=== PATIENT | female | born 1950 | race Caucasian/White ===

== ENCOUNTER 2018-07-18 08:09 | Emergency (ER) | payer MEDICARE ==
[2018-07-18 08:16] VITALS: RESP 16; TEMP 97.6
[2018-07-18] MEDS ORDERED: KETOROLAC 60 MG/2 ML VIAL IM STA (08:39)
[2018-07-18] MEDS ORDERED: DIAZEPAM 5 MG TAB PO STA (08:40)
[2018-07-18] MEDS ORDERED: ONDANSETRON ODT 4 MG TAB PO STA (08:40)
--- NOTE | 2018-07-18 09:01 | ED ---
General Adult HPI - General Chief complaint: Neck Pain/Injury Stated complaint: Neck Pain Time Seen by Provider: 07/18/18 08:18 Source: patient, RN notes reviewed Mode of arrival: wheelchair Limitations: no limitations - History of Present Illness Initial comments: Patient 67-year-old female significant past medical history for osteoarthritis of her neck, presenting to the emergency room today with a chief complaint of increased neck pain over the last 4 days. Patient does admit that she went to chiropractor. States she's had to treatment. States after the second treatment the following day began having increased pain to the neck. She states worse with any movements of flexion, extension, rotation. Patient does admit that she's tried pain medication of ibuprofen, Ultram, [place]. She states she's taken to [place] for the pain over the last day. She states that her last [place] at 4 AM. She woke up this morning and had a couple coffee and vomited. States she has felt somewhat nauseous. She states she is still having increased pain to the neck that has been increasing last 4 days. Patient denies any radicular pain. She states if she holds her neck still the pain is better. Patient denies any other complaints or symptoms. Patient denies any recent fever, chills, shortness of breath, chest pain, back pain, abdominal pain , nausea or vomiting, numbness or tingling, dysuria or hematuria, constipation or diarrhea, visual changes, or any other complaints. - Related Data Previous Rx's Medication Instructions Recorded Cyclobenzaprine [Flexeril] 10 mg PO TID #20 tab 07/18/18 Hydrocodone/Acetaminophen [[place] 1 each PO Q6HR PRN #12 tab 07/18/18 5-325] Ondansetron Odt [Zofran ODT] 4 mg PO Q8HR PRN #20 tab 07/18/18 Allergies Allergy/AdvReac Type Severity Reaction Status Date / Time tree nut [Nut] Allergy Anaphylaxis Verified 07/18/18 08:16 Review of Systems ROS Statement: Those systems with pertinent positive or pertinent negative responses have been documented in the HPI. ROS Other: All systems not noted in ROS Statement are negative. Past Medical History Past Medical History: Asthma, Osteoarthritis (OA) History of Any Multi-Drug Resistant Organisms: None Reported Past Surgical History: Orthopedic Surgery Additional Past Surgical History / Comment(s): spinal fusion, shoulder surgery, wrist surgery Past Psychological History: No Psychological Hx Reported Smoking Status: Never smoker Past Alcohol Use History: Daily Past Drug Use History: None Reported General Exam - General Exam Comments Initial Comments: General: The patient is awake and alert, in no distress, and does not appear acutely ill. Eye: Pupils are equal, round and reactive to light. Extra-ocular movements are intact. No nystagmus. There is normal conjunctiva bilaterally. No signs of icterus. Ears, nose, mouth and throat: There are moist mucous membranes and no oral lesions. Neck: The neck is supple. Cardiovascular: There is a regular rate and rhythm. No murmur, rub or gallop is appreciated. Respiratory: Lungs are clear to auscultation, respirations are non-labored, breath sounds are equal. No wheezes, stridor, rales, or rhonchi. Gastrointestinal: Abdomen soft on palpation nontender. Musculoskeletal: Patient shows limited range of motion of the cervical spine due to pain. Patient is tender midline but increased tenderness paravertebrally both the left and right sides. Pain is reproduced with flexion , extension, and rotation to the left and right. Patient does have relief by placing her neck with her hands bilaterally. Sensation intact. Strength 5/5. Radial Pulses equal bilaterally 2+. Neurological: A&O x 3. CN II-XII intact, There are no obvious motor or sensory deficits. Coordination appears grossly intact. Speech is normal. Skin: Skin is warm and dry and no rashes or lesions are noted. Psychiatric: Cooperative, appropriate mood & affect, normal judgment. Limitations: no limitations Course Vital Signs 07/18/18 07/18/18 08:12 10:04 Temperature 97.6 F Pulse Rate 91 64 Respiratory 16 16 Rate Blood Pressure 144/84 123/74 O2 Sat by Pulse 98 95 Oximetry Medical Decision Making - Medical Decision Making CT of the neck reviewed and shows degenerative changes. No acute abnormality. Results were discussed with the patient. Patient feeling better after medications of Toradol, Valium here in emergency room. She does show much improved range of motion of the neck. Patient will be continued to be treated with anti-inflammatories, [place] for pain, muscle relaxer, and Zofran to use if needed for any further nausea. A opiate start talking form was discussed and filled out Disposition Clinical Impression: Cervical strain Disposition: HOME SELF-CARE Condition: Good Instructions: Cervical Strain (ED) Additional Instructions: Please use medication as discussed. Please follow-up with family doctor in the next 2 days of symptoms have not improved. Please return to emergency room if the symptoms increase or worsen or for any other concerns. Prescriptions: Cyclobenzaprine [Flexeril] 10 mg PO TID #20 tab Hydrocodone/Acetaminophen [[place] 5-325] 1 each PO Q6HR PRN #12 tab PRN Reason: Pain Ondansetron Odt [Zofran ODT] 4 mg PO Q8HR PRN #20 tab PRN Reason: Nausea Is patient prescribed a controlled substance at d/c from ED?: Yes If prescribed controlled substance>3 days was MAPS reviewed?: Prescribed <3 Days Referrals: Radhames Hwang MD [Primary Care Provider] - 1-2 days Time of Disposition: 10:16
--- NOTE | 2018-07-18 09:58 | CT ---
EXAMINATION TYPE: CT cervical spine wo con DATE OF EXAM: 07/18/2018 COMPARISON: None. HISTORY: Pt hx osteoarthritis in neck. Had new chiropractic treatment several days ago, resulting in pain, spasming. CT DLP: 284.2 mGycm Automated exposure control for dose reduction was used. TECHNIQUE: CT scan of the cervical spine is obtained without contrast, axial images are obtained, sa gittal and coronal reformatted images are also reviewed. FINDINGS: Visualized portions of the lungs are clear. Prevertebral soft tissues are normal. There is a reversal of the normal cervical lordosis. There is a mild antegrade listhesis of C4 on C5. Alignment is otherwise unremarkable. Atlantoaxial relationships are normal. There is disc space loss and hypertrophic spondylosis at C5-6, C5-6-7 and C7-T1 and to a lesser exten t C4-5. There is mild uncovertebral joint disease at these levels. There is facet arthropathy bilater ally at C2-3, worse on the right than the left and C3-4, worse on the left than the right as well as C4-5, worse on the left than the right. No definite protrusion is seen. No fracture or other acute osseous lesion is seen. IMPRESSION: 1. NO ACUTE OSSEOUS LESION. 2. MODERATELY SEVERE DEGENERATIVE CHANGE.
[2018-07-18 10:05] VITALS: BP 123/74; PULSE 64
== END 2018-07-18 10:21 | disposition home or self-care (01) ==
LOC: EC 08:09
DX: S16.1XXA Strain of muscle, fascia and tendon at neck level, initial encounter (principal); M47.812 Spondylosis without myelopathy or radiculopathy, cervical region; Z91.018 Allergy to other foods; Z98.1 Arthrodesis status; X50.9XXA Other and unspecified overexertion or strenuous movements or postures, initial encounter
CPT/HCPCS: 72125; 99283; 96372; J1885

== ENCOUNTER → 2019-01-19 | Outpatient (CLI) | payer MEDICARE ==
--- NOTE | 2019-01-19 12:30 | CT ---
EXAMINATION TYPE: CT shoulder RT wo con DATE OF EXAM: 01/19/2019 COMPARISON: None HISTORY: 68-year-old female Pre op shoulder replacement TECHNIQUE: Contiguous axial scanning of the right shoulder without IV contrast. Coronal and sagittal reconstructions performed. 3-D reconstructions generated on a dedicated independent workstation. CT DLP: 214.2 mGycm Automated exposure control for dose reduction was used. FINDINGS: There is advanced degenerative change at the right glenoid humeral joint with [id number] abutment a nd prominent marginal spurring. Small superior joint space loose bodies measure up to 3 mm. Additional posterior loose bodies measure up to 6 mm. There is overall neutral glenoid version without significant loss of glenoid bone stock. Prominent distention of the subscapularis recess with a effusion up to 4.1 cm. Large contiguous fluid extending along the long head biceps tendon sheath. Overall preserved bulk of the rotator cuff musculature. There is an os craniotomy demonstrated. No Hill-Sachs deformity. AC joint appears intact. No acute fracture, subluxation, or dislocation seen. IMPRESSION: 1. ADVANCED RIGHT GLENOHUMERAL JOINT OA WITH [id number] ABUTMENT AND A FEW LOOSE BODIES MEASURING U P TO 6 MM. OVERALL NEUTRAL GLENOID VERSION AND MAINTAINED GLENOID BONE STOCK. 2. OVERALL MAINTAINED ROTATOR CUFF MUSCLE BULK. 3. LARGE EFFUSION DISTENDING THE SUBSCAPULARIS RECESS UP TO 4.1 CM AND CONTIGUOUS LARGE AMOUNT OF FLU ID TRACKING DOWN THE LONG HEAD BICEPS TENDON SHEATH. 4. OS ACROMIALE.
== END | disposition home or self-care (01) ==
LOC: RADCTMAIN 11:33
PROVIDERS: ATTEND Orthopaedic Surgery Sports Medicine
DX: M19.011 Primary osteoarthritis, right shoulder (principal); M89.8X1 Other specified disorders of bone, shoulder

== ENCOUNTER → 2019-02-12 | Outpatient (CLI) | payer MEDICARE ==
--- NOTE | 2019-02-12 15:43 | CT ---
EXAMINATION TYPE: CT abdomen wo con DATE OF EXAM: 02/12/2019 COMPARISON: None HISTORY: abdominal pain, hematuria CT DLP: 181.8 mGycm Automated exposure control for dose reduction was used. TECHNIQUE: Helical acquisition of images was performed from the lung bases through the top of iliac crest to include entire abdomen. Patient received oral contrast only. CONTRAST: Performed with Oral Contrast and without IV contrast. FINDINGS: Lack of intravenous contrast could compromise sensitivity. LUNG BASES: No significant abnormality is appreciated. LIVER/GB: No significant abnormality is appreciated. Gallbladder is contracted. PANCREAS: No significant abnormality is seen. SPLEEN: No significant abnormality is seen. ADRENALS: No significant abnormality is seen. KIDNEYS: Kidneys show no hydronephrosis or calcification, there is no evident ureteral calcification. BOWEL: No significant abnormality is seen. Appendix is normal. LYMPH NODES: No significan abnormality is appreciated. OSSEOUS STRUCTURES: No significant abnormality is seen. FREE AIR: No Free Air visible ASCITES: None visible. RETROPERITONEAL ADENOPATHY: No Retroperitoneal Adenopathy visible. OTHER: Postop changes are noted at the lower lumbar spine, there are degenerative disc changes. There is a cystic focus present within the left ilium measuring 4 cm x 1.7 cm with an associated break in cortex and possibly expansile, question whether this is a postoperative finding, correlate with patie nt's surgical history. IMPRESSION: NONCONTRAST EXAM. LYTIC FOCUS APPEARS SOMEWHAT EXPANSILE WITHIN THE LEFT ILIUM AND IS INCOMPLETELY EV ALUATED AND IS INDETERMINATE.
== END ==
LOC: RADCTMAIN 14:37
PROVIDERS: ATTEND Internal Medicine Geriatric Medicine
DX: R31.9 Hematuria, unspecified (principal)
CPT/HCPCS: 74150

== ENCOUNTER → 2019-04-15 | Outpatient (CLI) | payer MEDICARE ==
[2019-04-15 07:55] LABS: HCT 34.9 % (34.0-46.0); HGB 11.3 gm/dL (11.4-16.0); MCH 27.9 pg (25.0-35.0); MCHC 32.4 g/dL (31.0-37.0); MCV 86.3 fL (80.0-100.0); Mean Platelet Volume 6.8; Platelet Count 216 k/uL (150-450); RBC 4.05 m/uL (3.80-5.40); RDW 14.2 % (11.5-15.5)
[2019-04-15 08:00] LABS: INR 0.9 (<1.2); Partial Thromboplastin Time 24.7 sec (22.0-30.0); Prothrombin Time 10.2 sec (9.0-12.0)
[2019-04-15 08:13] LABS: Appearance,Urine Clear (Clear); Bacteria,Urine Moderate /hpf; Bilirubin,Urine Negative (Negative); Blood,Urine Small (Negative); Color,Urine Yellow; Glucose,Urine (UA) Negative (Negative); Ketones,Urine Negative (Negative); Leukocyte Esterase,Urine Negative (Negative); Mucus,Urine Rare /hpf; Nitrite,Urine Negative (Negative); Protein,Urine Negative (Negative); RBC,Urine 3 /hpf (0-5); Specific Gravity,Urine 1.018 (1.001-1.035); Squamous Epithelial Cell,Urine 1 /hpf (0-4); Urobilinogen,Urine <2.0 mg/dL (<2.0); WBC,Urine 1 /hpf (0-5)
[2019-04-15 11:45] LABS: African American GFR (CKD) 102.5 (60.0-200.0); Albumin 4.4 g/dL (3.80-4.90); Albumin/Globulin Ratio 2.44 (1.60-3.17); Anion Gap 6.3 mmol/L (4.00-12.00); Calcium 9.2 mg/dL (8.7-10.3); Carbon Dioxide 26.7 mmol/L (21.6-31.8); Globulin 1.8 g/dL (1.6-3.3); Potassium 4.4 mmol/L (3.5-5.5); Total Bilirubin 0.3 mg/dL (0.3-1.2); Total Protein 6.2 g/dL (6.2-8.2)
== END | disposition home or self-care (01) ==
LOC: LABWHC1 07:02
PROVIDERS: ATTEND Orthopaedic Surgery Sports Medicine
DX: Z01.812 Encounter for preprocedural laboratory examination (principal); M19.011 Primary osteoarthritis, right shoulder
CPT/HCPCS: 36415; 80053; 81001; 85027; 85610; 85730; 87070

== ENCOUNTER 2019-04-28 10:53 | Inpatient (IN) | payer MEDICARE ==
[2019-04-19 14:30] VITALS: BMI 20.8
[~2019-04-28 10:53] MED LIST: ACETAMINOPHEN TAB 500 MG TAB PO ONE; LIDOCAINE 1% 20 ML VIAL (10MG/ML) FOR IV START INTRADERMA PRN; MELOXICAM 7.5 MG TAB PO ONE; ONDANSETRON 4 MG/2 ML VIAL IVP ONE; TRANEXAMIC ACID 1,000 MG in SODIUM CHLORIDE 0.9% 100 ML IVPB ONE
[2019-04-28] MEDS: LACTATED RINGERS 1,000 ML IV SCH (12:00)
[2019-04-28] MEDS ORDERED: DEXAMETHASONE SOD PHOSPHATE 10 MG/ML 1 ML VIAL IV ONE (12:00)
[2019-04-28] MEDS ORDERED: fentaNYL (PF) 50 MCG/ML 2 ML AMP IVP ONE (12:19)
[2019-04-28] MEDS ORDERED: MIDAZOLAM (PF) 2 MG/2 ML VIAL IVP ONE (12:19)
[2019-04-28] MEDS ORDERED: HYDROmorphone 0.5 MG/0.5 ML SYRINGE IVP PRN ×2 (12:49)
[2019-04-28] MEDS ORDERED: diphenhydrAMINE 25 MG CAP PO PRN (12:49)
[2019-04-28] MEDS ORDERED: TEMAZEPAM 15 MG CAP PO PRN (12:49)
[2019-04-28] MEDS ORDERED: SENNOSIDES-DOCUSATE SODIUM 1 EACH TAB PO PRN (12:49)
[2019-04-28] MEDS ORDERED: HYDROcodone/APAP 5-325MG 1 EACH TAB PO PRN (12:49)
[2019-04-28] MEDS ORDERED: ROPIVACAINE 5 MG/ML 30 ML VIAL ONE (12:55)
[2019-04-28] MEDS ORDERED: MIDAZOLAM 2 MG/2 ML VIAL ONE (12:55)
[2019-04-28] MEDS ORDERED: TRANEXAMIC ACID 1,000 MG/10 ML VIAL ONE (12:55)
[2019-04-28] MEDS ORDERED: WATER FOR INJECTION, STERILE 10 ML VIAL IV ONE (12:55)
[2019-04-28] MEDS ORDERED: ePHEDrine SULFATE/0.9% NACL/PF 50 MG/5 ML SYRINGE IV ONE (12:55)
[2019-04-28] MEDS ORDERED: PHENYLEPHRINE-0.9% NACL SYG 1 MG/10 ML SYRINGE ONE (12:55)
[2019-04-28] MEDS ORDERED: DEXAMETHASONE SOD PHOSPHATE 4 MG/ML 1 ML VIAL ONE (12:55)
[2019-04-28] MEDS ORDERED: SUCCINYLCHOLINE CHLORIDE 100 MG/5 ML SYR IV ONE (12:55)
[2019-04-28] MEDS ORDERED: fentaNYL (PF) 50 MCG/ML 2 ML AMP ONE (12:55)
[2019-04-28] MEDS ORDERED: PROPOFOL 10 MG/ML 20 ML VIAL IV ONE (12:55)
[2019-04-28] MEDS ORDERED: SODIUM CHLORIDE 0.9% 100 ML BAG ONE (12:55)
[2019-04-28] MEDS ORDERED: LIDOCAINE 1% INJ 10MG/ML (20 ML MDV) ONE (12:55)
[2019-04-28] MEDS ORDERED: VANCOMYCIN 1,000 MG VIAL MISCELLANE ONE (13:54)
--- NOTE | 2019-04-28 14:05 | P.ANPRN ---
Procedure Note - Anesthesia - Nerve Block Performed Left Interscalene Single Time Out Performed: Yes Date of Procedure: 04/28/19 Location of Patient Procedure: PreOp Indication: Acute Post-Operative Pain Specifically requested for management of pain by DrMarly: Hussain Coronado Sedation Type: Sedate with meaningful contact maintained Preparation: Sterile Prep Position: Supine Catheter: None Needle Types: Pajunk Needle Gauge: 21 Technique: Ultrasound Injectate: 0.5% Ropivacaine (see comment for volume) (20 cc) Blood Aspirated: No Pain Paresthesia on Injection Noted: No Resistance on Injection: Normal Events: Uneventful and Well Tolerated
[2019-04-28] MEDS ORDERED: LACTATED RINGERS 1,000 ML IV ONE (14:11)
[2019-04-28] MEDS: HYDROmorphone 0.5 MG/0.5 ML SYRINGE IVP PRN ×2 (15:43→15:55)
[2019-04-28] MEDS: ONDANSETRON 4 MG/2 ML VIAL IVP PRN (15:48)
--- NOTE | 2019-04-28 16:22 | XR ---
Right shoulder HISTORY: Status post right shoulder arthroplasty Single frontal view of the right shoulder There is been interval right shoulder arthroplasty. There is anatomic alignment present. There is an indwelling drain. Lucency in the soft tissues compatible with postop state. Right lung apex as visual ized is normal. IMPRESSION: Orthopedic follow-up.
[2019-04-28] MEDS ORDERED: clonazePAM 0.5 MG TAB PO PRN (17:57)
--- NOTE | 2019-04-28 17:57 | P.CONS ---
History of Present Illness - Reason for Consult Consult date: 04/28/19 Medical management. Requesting physician: Hussain Coronado - Chief Complaint Status post right shoulder replacement. - History of Present Illness This is a 68-year-old female one of Dr. Hwang with a previous medical history significant for mild intermittent asthma, osteoporosis, history of restless leg syndrome, patient underwent right shoulder replacement that was done successfully by Dr. Coronado and we were asked see the patient for medical management, patient is laying down in bed in no apparent distress she is complaining of some nausea but no vomiting she just started to drink liquid diet, she has no chest pain or shortness breath she has no abdominal pain, she seems to be tolerating her treatment very well. Review of Systems Constitutional: Denies chronic pain, Denies fever, Denies lethargy, Denies weakness, Denies weight gain, Denies weight loss Eyes: denies blurred vision, denies bulging eye, denies decreased vision Ears: deny: decreased hearing Ears, nose, mouth and throat: Denies dysphagia, Denies neck lump, Denies swelling in throat, Denies sore throat Cardiovascular: Denies chest pain, Denies decreased exercise tolerance, Denies dyspnea on exertion, Denies lightheadedness, Denies rapid heart beat, Denies shortness of breath, Denies syncope Respiratory: Denies congestion, Denies cough with sputum, Denies home oxygen, Denies sleep apnea, Denies snoring, Denies wheezing Gastrointestinal: Reports nausea, Denies abdominal pain, Denies bloating, Denies BRBPR, Denies change in bowel habits, Denies coffee ground emesis, Denies early satiety, Denies heartburn, Denies hematemesis, Denies vomiting Genitourinary: Denies dysuria, Denies hematuria Musculoskeletal: right: shoulder pain, absent: ankle pain, ankle stiffness, ankle swelling, elbow pain, elbow stiffness, elbow swelling, foot pain, foot stiffness, foot swelling, hand pain, hand stiffness, hand swelling, hip pain, hip stiffness, hip swelling, knee pain, knee stiffness, knee swelling, shoulder stiffness, shoulder swelling, wrist pain, wrist stiffness, wrist swelling Integumentary: Denies pruritus, Denies rash Neurological: Denies numbness, Denies weakness Psychiatric: Denies anxiety, Denies depression Endocrine: Denies fatigue, Denies weight change Past Medical History Past Medical History: Asthma, Osteoarthritis (OA) Additional Past Medical History / Comment(s): ventral hernia, History of Any Multi-Drug Resistant Organisms: None Reported Past Surgical History: Back Surgery, Section, Orthopedic Surgery Additional Past Surgical History / Comment(s): spinal fusion L4-L5, rt shoulder surgery for bone spurs, left wrist surgery, rk cataracts Past Anesthesia/Blood Transfusion Reactions: Family History of Problems w/ Anesthesia Additional Past Anesthesia/Blood Transfusion Reaction / Comm: mother PONV Smoking Status: Current some day smoker - Past Family History Mother Family Medical History: Cancer (Mother at age of 83 from renal cancer.) Father Family Medical History: Dementia (Father at age of 63 from dementia.) Brother(s) Family Medical History: No Reported History (Patient has one brother no major medical problems.) Sister(s) Family Medical History: No Reported History (Patient has 2 sisters no major medical problems.) Medications and Allergies Home Medications Medication Instructions Recorded Confirmed Type Equality Study Vitamin 1 tab PO DAILY 04/19/19 04/28/19 History Difluprednate [Durezol] 1 drop LEFT EYE BID 04/19/19 04/28/19 History Ketorolac 0.5% Ophth Soln [Acular] 1 drop LEFT EYE BID 04/19/19 04/28/19 History L.acidoph,Paracasei, B.lactis 1 cap PO DAILY 04/19/19 04/28/19 History [Probiotic] Lubricant Eye Drops 1 drop BOTH EYES QID 04/19/19 04/28/19 History clonazePAM 0.25 mg PO HS PRN 04/19/19 04/28/19 History cycloSPORINE [Restasis] 1 applicator BOTH EYES BID 04/19/19 04/28/19 History Celecoxib [CeleBREX] 200 mg PO DAILY 04/28/19 04/28/19 History Allergies Allergy/AdvReac Type Severity Reaction Status Date / Time latex Allergy Unknown Verified 04/28/19 11:20 tree nut [Nut] Allergy Anaphylaxis Verified 04/28/19 11:20 Physical Exam Vitals: Vital Signs Temp Pulse Resp BP Pulse Ox 04/28/19 16:03 80 16 138/73 98 04/28/19 15:45 90 16 146/80 97 04/28/19 15:30 99 16 148/80 97 04/28/19 15:22 96.8 F L 108 H 16 134/79 97 04/28/19 12:00 97.6 F 84 16 168/91 96 Intake and Output 04/28/19 04/28/19 04/28/19 06:59 14:59 22:59 Intake Total 1450 200 Output Total 100 Balance 1350 200 Intake: IV 1450 200 Output: Estimated Blood Loss 100 Other: Weight 61.5 kg - Constitutional General appearance: no acute distress, thin - EENT Eyes: anicteric sclerae, EOMI, PERRLA, no ptosis, no scleral icterus, normal appearance ENT: hearing grossly normal, NA/AT, normal oropharynx, no thrush Ears: bilateral: normal - Neck Neck: no lymphadenopathy, normal ROM, no rigidity, no stridor, no thyromegaly Carotids: bilateral: upstroke normal Thyroid: bilateral: normal size - Respiratory Respiratory: bilateral: diminished, negative: dullness, rales, rhonchi, wheezing, prolonged expiration - Cardiovascular Rhythm: regular Heart sounds: normal: S1, S2 Abnormal Heart Sounds: no systolic murmur, no diastolic murmur, no S3 Gallop, no S4 Gallop, no click - Gastrointestinal General gastrointestinal: normal bowel sounds, soft, no splenomegaly, no tenderness, no umbilical hernia, no ventral hernia - Integumentary Integumentary: normal, normal turgor - Neurologic Neurologic: CNII-XII intact - Musculoskeletal Musculoskeletal: strength equal bilaterally - Psychiatric Psychiatric: A&O x's 3, appropriate affect, intact judgment & insight Assessment and Plan Assessment: Assessment and plan: 1. Post operative day #0 status post right shoulder replacement. Continue the use of incentive spirometer to reduce the incidence of atelectasis and healthcare associated pneumonia, continue current pain management as outlined by orthopedic surgery, increase activity in the next 24 hours. 2. Mild intermittent asthma. Stable at this time. 3. Osteoporosis. Hold off Celebrex for now. 4. Dry eyes. Continue current eyedrops. 5. Restless leg syndrome. Continue patient on clonazepam 0.25 mg orally once at bedtime. 6. Thank you for the consult we will follow with you.
[2019-04-28] MEDS: METOCLOPRAMIDE 5 MG/ML 2 ML VIAL IVP PRN (18:07)
--- NOTE | 2019-04-28 19:15 | OP ---
OPERATIVE REPORT DATE OF PROCEDURE: 04/28/2019. SURGEON: Hussain Coronado MD. UPHOLSTERY CLEANER: Yasmany CURIEL. PREOPERATIVE DIAGNOSIS: Right shoulder osteoarthrosis. POSTOPERATIVE DIAGNOSIS: Right shoulder osteoarthrosis. OPERATION: Right total shoulder arthroplasty. ANESTHESIA: General endotracheal. ESTIMATED BLOOD LOSS: 100 mL. DRAINS: One deep drain. COMPLICATIONS: None apparent. DISPOSITION: Post-Anesthesia Care Unit. INDICATIONS: Pippa is a very pleasant 68-year-old female with longstanding right shoulder pain. Workup including x-rays revealed advanced osteoarthrosis of the right shoulder. At this point it is felt that she has failed conservative management and she would like to proceed with operative intervention. The risks of the procedure were discussed with her in detail. These risks include but are not limited to risk of infection, nerve damage, bleeding, pain, instability in the shoulder, loosening of the implants and deep infection. There is also a risk of deep vein thrombosis which could lead to fatal pulmonary embolism. The patient understood the risks. All of her questions with regard to the risks of the procedure were answered to her satisfaction. Appropriate informed consent was obtained. DESCRIPTION OF THE PROCEDURE: The patient was identified in the preoperative holding area. Surgical site was marked by both the patient and myself. She was given 2 grams of Ancef IV for prophylactic purposes. She was then transferred to the operative suite. She was placed supine on the operative table. General anesthetic was then administered and dosed per the anesthesia department without apparent complications. Examination under anesthesia was then performed of the right shoulder. She had elevation to 140 degrees. External rotation at the side was to 30 degrees. The patient was then placed into the beach chair position, well padded in preparation for surgery. Great care was taken to insure that her cervical spine was in neutral alignment, well padded, and maintained that way throughout the operative procedure. Great care was also taken to ensure that her legs were appropriately padded as well. The patient's right upper extremity was then prepped and draped in usual sterile fashion. A standard surgical pause was then undertaken to ensure that we were operating on the correct site and that appropriate preoperative antibiotics had been given. All staff in the room were in agreement and we proceeded. The acromion, AC joint, clavicle and coracoid were marked with a surgical pen. A planned incision starting at the level of the clavicle and extending distally over the deltopectoral interval approximately 1 cm lateral to the coracoid was marked with a surgical pen. The incision was then made with a 10 blade scalpel. Dissection was carried down sharply to the deltoid fascia. The deltopectoral interval was identified at the level of the clavicle. A small band retractor was then placed onto the proximal deltoid. I then released the deltoid fascia on the lateral aspect of the cephalic vein. The vein was then left in its bed medially. The cephalic vein was protected throughout the entire case. I then identified the clavipectoral fascia. It was incised proximally to the level of the coracoacromial ligament. The coracoacromial ligament was left intact. I then used my finger to spread the interval between the conjoint tendon and the subscapularis. I felt for the axillary nerve, which was readily palpable. I then cleared the subacromial and subdeltoid spaces of bursal and scar tissue. I then utilized a Yousif retractor to hold the deltoid and expose the humeral head. I then proceeded with release of the subscapularis and the anterior inferior shoulder capsule. The rotator cuff was inspected. It was found to be intact. The rotator interval was identified. The course of the biceps tendon was also identified. I then released the rotator interval. It was released at the base of the coracoid and then out laterally. The subscapularis and the capsule were released intratendinously. The subscapularis and the capsule release extended distally in a lazy-S fashion approximately 1 cm medial to the biceps tendon. I then continued to release the capsule along the inferior neck in a vertical fashion to approximately the 6 o'clock position. Great care was taken to ensure that the capsule was always visualized as it was released as to avoid injuring the axillary nerve. I then brought a Chakraborty inventory analyst with the arm externally rotated and abducted. I continued to release the capsule inferomedially to the 4 o'clock position. The inferior osteophytes were now removed as well. This was done with a rongeur. I then proceeded with preparation of the humerus. I removed all the goat's polanco osteophytes. I then removed the subchondral plate from the superior aspect of the humeral head utilizing a large rongeur. I then used the starting reamer to gain access to the humeral canal. This was approximately 1 cm medial to the rotator cuff insertion and 1 cm posterior to the bicipital groove. I then prepared the humeral canal with hand reaming. I started with a 6 mm reamer and progressed incrementally until firm resistance was encountered at 11 mm. The reamer handle was then left in place. I then utilized a humeral resection guide. This was set at 30 degrees of retrotorsion. The cutting block was set approximately 1-2 mm above the insertion of the rotator cuff. I then proceeded to osteotomize the humeral head with the oscillating saw. I removed the resection guide and then completed the osteotomy. I then proceeded with trial stem placement. A trial size 11 was then broached in the canal starting with a size 6 broach up to an 11 broach. The 11 trial stem was then left in place. I then proceeded with trial reduction. I started with a 38 x 19 x 39 head. This fit very nicely. The head fit opposite the glenoid. The rotator cuff was not tented. Internal rotation was at 90 degrees. Elevation was to 150 degrees and translation was one half of the head in neutral rotation and one quarter of the head inferiorly in 15- 20 degrees of abduction. I then removed the trial head. The stem was left in place. I then proceeded with exposure of the glenoid. At this point I did release the biceps tendon. This was tenotomized at the level of the superior labrum. A bone hook was then utilized to pull the humerus out laterally. I then inspected the joint for loose bodies. There were 2 fairly sizable loose bodies in the posterior aspect of the joint. These were removed. The condition of the rotator cuff again was inspected. It was in excellent condition. The Bhattman retractor was then placed on the posterior glenoid rim. The arm was placed in approximately 70-80 degrees of abduction and in slight flexion on the Chakraborty stand. I then proceeded to remove the hypertrophic labrum to definitively identify the actual glenoid. I then selected the size of the glenoid. A small-sized glenoid fit very nicely. I then utilized the starting drill to make the centering hole. I then proceeded to ream the glenoid fossa. This was done with a small-sized reamer. The reaming was taken down to paprika signs. Great care was taken to maintain as much subchondral bone as possible, and did very minimal reaming. There was a nice bleeding surface. I then proceeded to place the glenoid drill holes. The peripheral holes were then placed and the center hole was drilled as well. I then placed the small-sized glenoid trial. It fit very nicely onto the glenoid. I then proceed with cementing. I Waterpik'd the wound and the bone. The drill holes were then packed with Ray-Saeid sponges. The cement was mixed on the back table by the political science research assistant. The peripheral drill holes were then packed with cement utilizing a 20 mL syringe. These were packed very tightly. A small amount of cement was then placed on the posterior aspect of the real glenoid component. I then impacted the real glenoid component into place. It was a Biomet small-sized pegged glenoid component with a Regenerex central peg. Excess cement was removed utilizing a freer elevator. Pressure was held on the glenoid component until the cement had hardened. I then removed the Bhattman retractor. I then proceeded with humeral component trial reduction with the real glenoid. A 38 x 19 x 39 head was then placed back onto the stem. Again this taken through a trial. The head sat opposite the glenoid. The rotator cuff was not tented. The elevation was to 150 degrees, internal rotation at 90 degrees and translation was one half of the head in neutral rotation and one quarter of the head in 15 to 20 degrees of abduction. I then had the branch sales and service representative open a 38 x 19 x 39 real head and a size 11 Biomet mini stem. I then placed my 0 Vicryl rotator interval closure stitches. Again the wound was thoroughly irrigated with sterile saline solution with antibiotic added. The stem was then impacted into the canal in 30 degrees of retrotorsion. The real head was then impacted onto the stem. The shoulder was reduced. I then proceeded with closure. Again the wound was thoroughly irrigated with sterile saline solution with antibiotic added. The rotator interval sutures were then tied securely. The subscapularis and anterior capsule were then repaired with #2 FiberWire interrupted suture. Again the wound was thoroughly irrigated with sterile saline solution with antibiotic added. A deep drain was then placed and brought out superiorly away from the incision. Approximately half of 1000 mg of vancomycin powder was placed in the wound. The deltopectoral interval was then closed with 0 Vicryl interrupted suture. Again the wound was thoroughly irrigated. The remaining approximate 500 mg of vancomycin powder was then placed subcutaneously. Subcutaneous tissue was then closed with 2-0 Vicryl interrupted suture and the skin was closed with a running 3-0 Quill suture. Sterile compressive dressing was then applied. The patient's right upper extremity was placed into a shoulder immobilizer. All sponge and needle counts were deemed correct prior to closure. The patient tolerated the procedure without apparent complication. She was transferred to the recovery room in stable condition. ALFRED / DANNYN: [id number] /
[2019-04-28] MEDS: ARTIFICIAL TEARS-HYPROMELLOSE DROPS 15 ML BTL BOTH EYES SCH ×2 (19:20→20:33)
[2019-04-28] MEDS: KETOROLAC 0.5% OPHTH DROPS 5 ML BTL LEFT EYE SCH (20:33)
[2019-04-28] MEDS: DIFLUPREDNATE LEFT EYE SCH (20:33)
[2019-04-28] MEDS: cycloSPORINE 0.05% OPHTH 0.4 ML DROPERETTE BOTH EYES SCH (20:33)
[2019-04-28] MEDS: DOXYCYCLINE 100 MG CAP PO SCH (20:47)
[2019-04-28] MEDS: HYDROcodone/APAP 5-325MG 1 EACH TAB PO PRN (23:54)
[2019-04-29] MEDS: HYDROmorphone 0.5 MG/0.5 ML SYRINGE IVP PRN ×2 (02:40→07:34)
[2019-04-29] MEDS: HYDROcodone/APAP 5-325MG 1 EACH TAB PO PRN (05:42)
[2019-04-29] MEDS: LACTATED RINGERS 1,000 ML IV SCH (05:52)
[2019-04-29 07:02] LABS: Basophils % (A) 0 %; Eosinophils % (A) 0 %; HCT 32.3 % (34.0-46.0); HGB 10.1 gm/dL (11.4-16.0); Lymphocytes # (A) 1.8 k/uL (1.0-4.8); Lymphocytes % (A) 18 %; MCH 27.5 pg (25.0-35.0); MCHC 31.4 g/dL (31.0-37.0); MCV 87.6 fL (80.0-100.0); Mean Platelet Volume 6.8; Monocytes # (A) 0.7 k/uL (0-1.0); Monocytes % (A) 7 %; Neutrophils # (A) 7.7 k/uL (1.3-7.7); Neutrophils % (A) 74 %; Platelet Count 221 k/uL (150-450); RBC 3.68 m/uL (3.80-5.40); WBC 10.3 k/uL (3.8-10.6)
[2019-04-29] MEDS: METOCLOPRAMIDE 5 MG/ML 2 ML VIAL IVP PRN ×2 (08:52→23:30)
[2019-04-29] MEDS ORDERED: [UNRECOGNIZED DRUG - OTHER] PO SCH (09:00)
[2019-04-29] MEDS ORDERED: ONDANSETRON 4 MG TAB PO PRN (09:34)
[2019-04-29] MEDS ORDERED: ONDANSETRON 8 MG in SODIUM CHLORIDE 0.9% 50 ML IVPB PRN (09:34)
[2019-04-29] MEDS ORDERED: HYDROcodone/APAP 10-325MG 1 EACH TAB PO PRN (09:36)
--- NOTE | 2019-04-29 09:41 | P.PN ---
Subjective Progress Note Date: 04/29/19 Principal diagnosis: S/P right TSA Patient is seen at bedside this morning. She is postop day #1 from right total shoulder arthroplasty.. She has pain at the surgical site as expected but denies any new complaints. She denies numbness, tingling or calf pain. Review of systems is negative for fever, chills, chest pain, shortness of breath or other Objective - Vital Signs Vital signs: Vital Signs Temp 98.1 F 04/29/19 07:00 Pulse 101 H 04/29/19 07:00 Resp 16 04/29/19 07:00 BP 124/60 04/29/19 07:00 Pulse Ox 98 04/29/19 07:00 Intake & Output 04/28/19 04/29/19 04/29/19 18:59 06:59 18:59 Intake Total 1830 540 Output Total 100 830 Balance 1730 -290 Weight 61.5 kg Intake: IV 1650 Oral 180 540 Output: Drainage 80 Right Shoulder 80 Urine 750 Estimated Blood Loss 100 Other: # Voids 1 - Exam Inspection reveals a benign surgical wound. There is no active bleeding or drainage. Drain is pulled. Neurovascular status is intact throughout the upper extremity with motor and sensation fully intact. Calves are soft and nontender. 2+ radial pulse and less than 2 second cap refill is present. - Constitutional General appearance: Present: no acute distress - Labs CBC & Chem 7: 04/29/19 06:33 Labs: Abnormal Lab Results - Last 24 Hours (Table) 04/29/19 Range/Units 06:33 RBC 3.68 L (3.80-5.40) m/uL Hgb 10.1 L (11.4-16.0) gm/dL Hct 32.3 L (34.0-46.0) % Assessment and Plan (1) Osteoarthritis of right shoulder Narrative/Plan: She will continue with routine postop orthopedic protocol including pain management, wound care, PT, DVT prophylaxis and medical management. We will adjust her pain meds and nausea meds as she is struggling some this morning with pain control and nausea. Expect that he will transfer to home tomorrow Current Visit: Yes Status: Acute Priority: Medium Code(s): M19.011 - PRIMARY OSTEOARTHRITIS, RIGHT SHOULDER SNOMED Code(s): 468959298840069 Time with Patient: Less than 30
[2019-04-29] MEDS: ONDANSETRON 4 MG/2 ML VIAL IVP PRN (11:17)
[2019-04-29] MEDS: LACTOBACILLUS ACIDOPH & BULGAR 1 EACH PACKET PO SCH (11:32)
[2019-04-29] MEDS: DOXYCYCLINE 100 MG CAP PO SCH ×2 (11:32→21:08)
[2019-04-29] MEDS: HYDROcodone/APAP 10-325MG 1 EACH TAB PO PRN ×3 (11:45→23:31)
--- NOTE | 2019-04-29 13:52 | P.PN ---
Subjective Progress Note Date: 04/29/19 This is a 68-year-old female one of Dr. Hwang with a previous medical history significant for mild intermittent asthma, osteoporosis, history of restless leg syndrome, patient underwent right shoulder replacement that was done successfully by Dr. Coronado and we were asked see the patient for medical management, patient is laying down in bed in no apparent distress she is complaining of some nausea but no vomiting she just started to drink liquid diet, she has no chest pain or shortness breath she has no abdominal pain, she seems to be tolerating her treatment very well. 04/29: Patient is complaining of vomiting 3 times yesterday and twice this morning. Orthopedics has ordered a Zofran drip. Patient is due for pain medication now. Patient has been afebrile, heart rate 101, blood pressure 124/60 and pulse ox 90% on room air. Hemoglobin 10.1 Objective - Vital Signs Vital signs: Vital Signs Temp 98.1 F 04/29/19 07:00 Pulse 101 H 04/29/19 07:00 Resp 16 04/29/19 07:00 BP 124/60 04/29/19 07:00 Pulse Ox 98 04/29/19 07:00 Intake & Output 04/28/19 04/29/19 04/29/19 18:59 06:59 18:59 Intake Total 1830 540 Output Total 100 830 Balance 1730 -290 Weight 61.5 kg Intake: IV 1650 Oral 180 540 Output: Drainage 80 Right Shoulder 80 Urine 750 Estimated Blood Loss 100 Other: # Voids 1 - Exam Review of Systems Constitutional: Denies chronic pain, Denies fever, Denies lethargy, Denies weakness, Denies weight gain, Denies weight loss Eyes: denies blurred vision, denies bulging eye, denies decreased vision Ears: deny: decreased hearing Ears, nose, mouth and throat: Denies dysphagia, Denies neck lump, Denies swelling in throat, Denies sore throat Cardiovascular: Denies chest pain, Denies decreased exercise tolerance, Denies dyspnea on exertion, Denies lightheadedness, Denies rapid heart beat, Denies shortness of breath, Denies syncope Respiratory: Denies congestion, Denies cough with sputum, Denies home oxygen, D enies sleep apnea, Denies snoring, Denies wheezing Gastrointestinal: Reports nausea, Denies abdominal pain, Denies bloating, Denies BRBPR, Denies change in bowel habits, Denies coffee ground emesis, Denies early satiety, Denies heartburn, Denies hematemesis, reports vomiting Genitourinary: Denies dysuria, Denies hematuria Musculoskeletal: right: shoulder pain, absent: ankle pain, ankle stiffness, ankle swelling, elbow pain, elbow stiffness, elbow swelling, foot pain, foot stiffness, foot swelling, hand pain, hand stiffness, hand swelling, hip pain, hip stiffness, hip swelling, knee pain, knee stiffness, knee swelling, shoulder stiffness, shoulder swelling, wrist pain, wrist stiffness, wrist swelling Integumentary: Denies pruritus, Denies rash Neurological: Denies numbness, Denies weakness Psychiatric: Denies anxiety, Denies depression Endocrine: Denies fatigue, Denies weight change - Constitutional General appearance: no acute distress, thin - EENT Eyes: anicteric sclerae, EOMI, PERRLA, no ptosis, no scleral icterus, normal appearance ENT: hearing grossly normal, NA/AT, normal oropharynx, no thrush Ears: bilateral: normal - Neck Neck: no lymphadenopathy, normal ROM, no rigidity, no stridor, no thyromegaly Carotids: bilateral: upstroke normal Thyroid: bilateral: normal size - Respiratory Respiratory: bilateral: diminished, negative: dullness, rales, rhonchi, wheezing, prolonged expiration - Cardiovascular Rhythm: regular Heart sounds: normal: S1, S2 Abnormal Heart Sounds: no systolic murmur, no diastolic murmur, no S3 Gallop, no S4 Gallop, no click - Gastrointestinal General gastrointestinal: normal bowel sounds, soft, no splenomegaly, no tenderness, no umbilical hernia, no ventral hernia - Integumentary Integumentary: normal, normal turgor - Neurologic Neurologic: CNII-XII intact - Musculoskeletal Musculoskeletal: strength equal bilaterally Right shoulder dressing in place - Psychiatric Psychiatric: A&O x's 3, appropriate affect, intact judgment & insight - Labs CBC & Chem 7: 04/29/19 06:33 Labs: Abnormal Lab Results - Last 24 Hours (Table) 04/29/19 Range/Units 06:33 RBC 3.68 L (3.80-5.40) m/uL Hgb 10.1 L (11.4-16.0) gm/dL Hct 32.3 L (34.0-46.0) % Assessment and Plan Plan: 1. Post operative day #1 status post right shoulder replacement. Continue the use of incentive spirometer to reduce the incidence of atelectasis and healthcare associated pneumonia, continue current pain management as outlined by orthopedic surgery, increase activity in the next 24 hours. 2. Mild intermittent asthma. Stable at this time. 3. Osteoporosis. Hold off Celebrex for now. 4. Dry eyes. Continue current eyedrops. 5. Restless leg syndrome. Continue patient on clonazepam 0.25 mg orally once at bedtime. 6. Postoperative nausea, expected from surgery. Continue Zofran. Discharge plan: Return home Impression and plan of care have been directed as dictated by the signing physician. Mayra Ramos nurse practitioner acting as scribe for signing physician.
[2019-04-29] MEDS: KETOROLAC 0.5% OPHTH DROPS 5 ML BTL LEFT EYE SCH ×2 (15:30→21:56)
[2019-04-29] MEDS: DIFLUPREDNATE LEFT EYE SCH ×2 (15:30→21:56)
[2019-04-29] MEDS: cycloSPORINE 0.05% OPHTH 0.4 ML DROPERETTE BOTH EYES SCH ×2 (15:30→21:56)
[2019-04-29] MEDS: SODIUM CHLORIDE 0.9% 1,000 ML IV SCH ×2 (15:30→22:19)
[2019-04-29] MEDS: ARTIFICIAL TEARS-HYPROMELLOSE DROPS 15 ML BTL BOTH EYES SCH ×3 (15:30→21:56)
[2019-04-30] MEDS: METOCLOPRAMIDE 5 MG/ML 2 ML VIAL IVP PRN (05:37)
[2019-04-30] MEDS: HYDROcodone/APAP 10-325MG 1 EACH TAB PO PRN (05:38)
[2019-04-30] MEDS: ONDANSETRON 4 MG/2 ML VIAL IVP PRN (08:45)
[2019-04-30] MEDS ORDERED: traMADol 50 MG TAB PO PRN (09:18)
[2019-04-30] MEDS: PROMETHAZINE INJ 25 MG/ML 1 ML VIAL IM PRN ×2 (09:29→21:29)
--- NOTE | 2019-04-30 09:31 | P.PN ---
Subjective Progress Note Date: 04/30/19 Principal diagnosis: S/P right TSA Patient is seen at bedside this morning. She is postop day #2 from right total shoulder arthroplasty.. She has pain at the surgical site as expected and continues to struggle with nausea. She denies any new complaints. She denies numbness, tingling or calf pain. Review of systems is negative for fever, chills, chest pain, shortness of breath or other Objective - Vital Signs Vital signs: Vital Signs Temp 98.4 F 04/30/19 07:00 Pulse 87 04/30/19 07:00 Resp 16 04/30/19 07:00 BP 138/73 04/30/19 07:00 Pulse Ox 95 04/30/19 07:00 Intake & Output 04/29/19 04/30/19 04/30/19 18:59 06:59 18:59 Intake Total 0 400 Output Total 100 Balance -100 400 Intake: Intake, IV Titration 300 Amount Sodium Chloride 0.9% 1, 300 000 ml @ 100 mls/hr IV . Q10H [facility] Rx#:[id number] Oral 0 100 Output: Emesis 100 Other: Voiding Method Toilet # Voids 2 1 - Exam Inspection reveals a benign surgical wound. There is no active bleeding or drainage. Neurovascular status is intact throughout the upper extremity with motor and sensation fully intact. Calves are soft and nontender. 2+ radial pulse and less than 2 second cap refill is present. - Constitutional General appearance: Present: no acute distress - Labs CBC & Chem 7: 04/29/19 06:33 Assessment and Plan (1) Osteoarthritis of right shoulder Narrative/Plan: She will continue with routine postop orthopedic protocol including pain management, wound care, PT, DVT prophylaxis and medical management. We will adjust her pain meds again and add phenergan as she continues to struggle with pain control and nausea. Expect that she will transfer to home later today or tomorrow Current Visit: Yes Status: Acute Priority: Medium Code(s): M19.011 - PRIMARY OSTEOARTHRITIS, RIGHT SHOULDER SNOMED Code(s): [id number] Time with Patient: Less than 30
[2019-04-30] MEDS: SODIUM CHLORIDE 0.9% 1,000 ML IV SCH (09:33)
[2019-04-30] MEDS: DOXYCYCLINE 100 MG CAP PO SCH ×2 (09:34→20:31)
[2019-04-30] MEDS: ARTIFICIAL TEARS-HYPROMELLOSE DROPS 15 ML BTL BOTH EYES SCH ×4 (09:34→20:31)
[2019-04-30] MEDS: cycloSPORINE 0.05% OPHTH 0.4 ML DROPERETTE BOTH EYES SCH ×2 (09:34→20:31)
[2019-04-30] MEDS: LACTOBACILLUS ACIDOPH & BULGAR 1 EACH PACKET PO SCH (09:34)
[2019-04-30] MEDS: DIFLUPREDNATE LEFT EYE SCH ×2 (09:35→20:31)
[2019-04-30] MEDS: KETOROLAC 0.5% OPHTH DROPS 5 ML BTL LEFT EYE SCH ×2 (09:35→20:31)
[2019-04-30] MEDS: oxyCODONE ER 10 MG TAB.ER.12H PO SCH ×2 (11:33→23:07)
--- NOTE | 2019-04-30 14:06 | P.PN ---
Subjective Progress Note Date: 04/30/19 This is a 68-year-old female one of Dr. Hwang with a previous medical history significant for mild intermittent asthma, osteoporosis, history of restless leg syndrome, patient underwent right shoulder replacement that was done successfully by Dr. Coronado and we were asked see the patient for medical management, patient is laying down in bed in no apparent distress she is complaining of some nausea but no vomiting she just started to drink liquid diet, she has no chest pain or shortness breath she has no abdominal pain, she seems to be tolerating her treatment very well. 04/29: Patient is complaining of vomiting 3 times yesterday and twice this morning. Orthopedics has ordered a Zofran drip. Patient is due for pain medication now. Patient has been afebrile, heart rate 101, blood pressure 124/60 and pulse ox 90% on room air. Hemoglobin 10.1 04/30: Patient has been afebrile, heart rate 87, blood pressure 138/73, pulse ox 95% on room air. Continues to have difficulty with nausea and was able to eat only 2 bites of toast this morning. She states she is passing gas but has not had a bowel movement. She is complaining of dizziness this morning. She denies any numbness. She is urinating a good amount. Less edema to the shoulder area. Pain medication has been switched to oxycodone and Phenergan seems to be causing more trouble with nausea and this has been changed to Phenergan. IV fluids will be transitioned to saline lock. Anticipate probable discharge tomorrow if nausea is improved. Objective - Vital Signs Vital signs: Vital Signs Temp 98.4 F 04/30/19 07:00 Pulse 87 04/30/19 07:00 Resp 16 04/30/19 07:00 BP 138/73 04/30/19 07:00 Pulse Ox 95 04/30/19 07:00 Intake & Output 04/29/19 04/30/19 04/30/19 18:59 06:59 18:59 Intake Total 0 400 Output Total 100 Balance -100 400 Intake: Intake, IV Titration 300 Amount Sodium Chloride 0.9% 1, 300 000 ml @ 100 mls/hr IV . Q10H [facility] Rx#:[id number] Oral 0 100 Output: Emesis 100 Other: Voiding Method Toilet # Voids 2 1 - Exam Review of Systems Constitutional: Denies chronic pain, Denies fever, Denies lethargy, Denies weakness, Denies weight gain, Denies weight loss Eyes: denies blurred vision, denies bulging eye, denies decreased vision Ears: deny: decreased hearing Ears, nose, mouth and throat: Denies dysphagia, Denies neck lump, Denies swelling in throat, Denies sore throat Cardiovascular: Denies chest pain, Denies decreased exercise tolerance, Denies dyspnea on exertion, Denies lightheadedness, Denies rapid heart beat, Denies shortness of breath, Denies syncope Respiratory: Denies congestion, Denies cough with sputum, Denies home oxygen, Denies sleep apnea, Denies snoring, Denies wheezing Gastrointestinal: Reports nausea, Denies abdominal pain, Denies bloating, Denies BRBPR, Denies change in bowel habits, Denies coffee ground emesis, Denies early satiety, Denies heartburn, Denies hematemesis, denies vomiting Genitourinary: Denies dysuria, Denies hematuria Musculoskeletal: right: shoulder pain-controlled, absent: ankle pain, ankle stiffness, ankle swelling, elbow pain, elbow stiffness, elbow swelling, foot pain, foot stiffness, foot swelling, hand pain, hand stiffness, hand swelling, hip pain, hip stiffness, hip swelling, knee pain, knee stiffness, knee swelling, shoulder stiffness, shoulder swelling, wrist pain, wrist stiffness, wrist swe lling Integumentary: Denies pruritus, Denies rash Neurological: Denies numbness, Denies weakness Psychiatric: Denies anxiety, Denies depression Endocrine: Denies fatigue, Denies weight change Physical exam: - Constitutional General appearance: no acute distress, thin, at bedside - EENT Eyes: anicteric sclerae, EOMI, PERRLA, no ptosis, no scleral icterus, normal appearance ENT: hearing grossly normal, NA/AT, normal oropharynx, no thrush Ears: bilateral: normal - Neck Neck: no lymphadenopathy, normal ROM, no rigidity, no stridor, no thyromegaly Carotids: bilateral: upstroke normal Thyroid: bilateral: normal size - Respiratory Respiratory: bilateral: diminished, negative: dullness, rales, rhonchi, wheezing, prolonged expiration - Cardiovascular Rhythm: regular Heart sounds: normal: S1, S2 Abnormal Heart Sounds: no systolic murmur, no diastolic murmur, no S3 Gallop, no S4 Gallop, no click - Gastrointestinal General gastrointestinal: normal bowel sounds, soft, no splenomegaly, no tenderness, no umbilical hernia, no ventral hernia - Integumentary Integumentary: normal, normal turgor - Neurologic Neurologic: CNII-XII intact - Musculoskeletal Musculoskeletal: strength equal bilaterally Right shoulder dressing in place - Psychiatric Psychiatric: A&O x's 3, appropriate affect, intact judgment & insight - Labs CBC & Chem 7: 04/29/19 06:33 Assessment and Plan Plan: 1. Post operative day #2 status post right shoulder replacement. Continue the use of incentive spirometer to reduce the incidence of atelectasis and healthcare associated pneumonia, continue current pain management as outlined by orthopedic surgery, increase activity in the next 24 hours. 2. Mild intermittent asthma. Stable at this time. 3. Osteoporosis. Hold off Celebrex for now. 4. Dry eyes. Continue current eyedrops. 5. Restless leg syndrome. Continue patient on clonazepam 0.25 mg orally once at bedtime. 6. Postoperative nausea, expected from surgery. Continue Zofran. Zofran and Dilaudid seemed to be causing more trouble with nausea. Pain medication changed to oxycodone and Phenergan for nausea Discharge plan: Return home most likely on Friday Impression and plan of care have been directed as dictated by the signing physician. Mayra Ramos nurse practitioner acting as scribe for signing physician.
[2019-04-30] MEDS ORDERED: traMADol 50 MG TAB PO STA (16:11)
[2019-04-30] MEDS: traMADol 50 MG TAB PO SCH ×2 (19:47→20:31)
[2019-05-01] MEDS: oxyCODONE ER 10 MG TAB.ER.12H PO SCH (07:28)
[2019-05-01] MEDS: DOXYCYCLINE 100 MG CAP PO SCH (07:30)
[2019-05-01] MEDS: ARTIFICIAL TEARS-HYPROMELLOSE DROPS 15 ML BTL BOTH EYES SCH ×2 (07:38→12:42)
[2019-05-01] MEDS: cycloSPORINE 0.05% OPHTH 0.4 ML DROPERETTE BOTH EYES SCH (07:38)
[2019-05-01] MEDS: KETOROLAC 0.5% OPHTH DROPS 5 ML BTL LEFT EYE SCH (07:39)
[2019-05-01] MEDS: DIFLUPREDNATE LEFT EYE SCH (07:39)
[2019-05-01] MEDS: LACTOBACILLUS ACIDOPH & BULGAR 1 EACH PACKET PO SCH (07:39)
[2019-05-01 08:21] VITALS: BP 139/76; PULSE 81; RESP 16; TEMP 98.1
[2019-05-01] MEDS: traMADol 50 MG TAB PO SCH ×2 (09:16→12:43)
--- NOTE | 2019-05-01 09:31 | P.DS ---
Providers Date of admission: 04/28/19 10:53 Expected date of discharge: 05/01/19 Attending physician: Hussain Coronado Consults: 04/28/19 12:49 Consult Physician Routine Consulting Provider: Radhames Hwang Reason/Comments: post op medical management Do you want consulting provider notified?: Yes Primary care physician: Radhames Jaiden [facility] Course: This is an 68-year-old female who presented to [facility] after falling in the office with Dr. Coronado for long-standing right shoulder pain. She is found to have advanced osteoarthritis of the right shoulder. It was recommended that she proceed with operative intervention. Patient underwent right total shoulder arthroplasty on 04/28/[address] Coronado. The patient is admitted to our service following the procedure for routine postoperative care. The patient is taken to surgery for right total shoulder arthroplasty. The procedure is performed without complication or sequelae. The patient is doing well postoperatively. Vital signs are stable on postop day #3. Patient is examined bedside this morning. Patient states overall she feels well today. She states her pain is well-controlled. She states her nausea has improved from yesterday. She did require medication for nausea overnight, although she has not vomited. She states this morning she has eaten breakfast with no issues. She denies chest pain, shortness of breath, numbness or tingling of the right upper extremity, or calf pain. She has no new complaints or concerns this morning. On examination, the patient is sitting up in bed in no apparent distress. Her is bedside. Patient alert and oriented 3. Inspection of the right upper extremity, there is a clean, dry, intact dressing of the right shoulder. Dressing is taken down and reveals a benign surgical incision. There is no surrounding erythema, warmth, or drainage. Motor and sensory function intact of the right upper extremity. Radial pulse palpable, with brisk capillary refill of all fingers. The calves are soft and nontender bilaterally. The patient is discharged to home today pending medical clearance today. Please refer to the med rec for accurate list of medications. Patient Condition at Discharge: Fair Plan - Discharge Summary Discharge Rx Participant: Yes New Discharge Prescriptions: New Docusate [Colace] 100 mg PO BID #60 capsule Doxycycline Hyclate 100 mg PO BID 5 Days #10 tab oxyCODONE ER [OxyCONTIN] 10 mg PO Q12HR 5 Days #10 tab Promethazine [Phenergan] 12.5 mg PO Q4HR PRN #30 tablet PRN Reason: Nausea No Action clonazePAM 0.25 mg PO HS PRN PRN Reason: restless leg L.acidoph,Paracasei, B.lactis [Probiotic] 1 cap PO DAILY [place] Study Vitamin 1 tab PO DAILY Ketorolac 0.5% Ophth Soln [Acular] 1 drop LEFT EYE BID cycloSPORINE [Restasis] 1 applicator BOTH EYES BID Lubricant Eye Drops 1 drop BOTH EYES QID Difluprednate [Durezol] 1 drop LEFT EYE BID Celecoxib [CeleBREX] 200 mg PO DAILY Discharge Medication List [place] Study Vitamin 1 tab PO DAILY 04/19/19 [History] Difluprednate [Durezol] 1 drop LEFT EYE BID 04/19/19 [History] Ketorolac 0.5% Ophth Soln [Acular] 1 drop LEFT EYE BID 04/19/19 [History] L.acidoph,Paracasei, B.lactis [Probiotic] 1 cap PO DAILY 04/19/19 [History] Lubricant Eye Drops 1 drop BOTH EYES QID 04/19/19 [History] clonazePAM 0.25 mg PO HS PRN 04/19/19 [History] cycloSPORINE [Restasis] 1 applicator BOTH EYES BID 04/19/19 [History] Celecoxib [CeleBREX] 200 mg PO DAILY 04/28/19 [History] Docusate [Colace] 100 mg PO BID #60 capsule 04/30/19 [Rx] Doxycycline Hyclate 100 mg PO BID 5 Days #10 tab 04/30/19 [Rx] Promethazine [Phenergan] 12.5 mg PO Q4HR PRN #30 tablet 04/30/19 [Rx] oxyCODONE ER [OxyCONTIN] 10 mg PO Q12HR 5 Days #10 tab 04/30/19 [Rx] Follow up Appointment(s)/Referral(s): Radhames Hwang MD [Primary Care Provider] - 05/14/19 9:45 am Hussain Coronado MD [STAFF PHYSICIAN] - 05/05/19 8:30 am Patient Instructions/Handouts: Shoulder Arthroplasty (DC) Activity/Diet/Wound Care/Special Instructions: Keep wound clean and dry Take meds as directed Follow-up with Dr. Coronado in office Maintain sling. Non weightbearing righ upper extremity May shower in 3 days if no bleeding Discharge Disposition: HOME WITH HOME HEALTH SERVICES
--- NOTE | 2019-05-01 22:48 | P.PN ---
Subjective Progress Note Date: 05/01/19 his is a 68-year-old female one of Dr. Hwang with a previous medical history significant for mild intermittent asthma, osteoporosis, history of restless leg syndrome, patient underwent right shoulder replacement that was done successfully by Dr. Coronado and we were asked see the patient for medical management, patient is laying down in bed in no apparent distress she is complaining of some nausea but no vomiting she just started to drink liquid diet, she has no chest pain or shortness breath she has no abdominal pain, she seems to be tolerating her treatment very well. 04/29: Patient is complaining of vomiting 3 times yesterday and twice this morning. Orthopedics has ordered a Zofran drip. Patient is due for pain medication now. Patient has been afebrile, heart rate 101, blood pressure 124/60 and pulse ox 90% on room air. Hemoglobin 10.1 04/30: Patient has been afebrile, heart rate 87, blood pressure 138/73, pulse ox 95% on room air. Continues to have difficulty with nausea and was able to eat only 2 bites of toast this morning. She states she is passing gas but has not had a bowel movement. She is complaining of dizziness this morning. She denies any numbness. She is urinating a good amount. Less edema to the shoulder area. Pain medication has been switched to oxycodone and Phenergan seems to be causing more trouble with nausea and this has been changed to Phenergan. IV fluids will be transitioned to saline lock. Anticipate probable discharge tomorrow if nausea is improved. 05/01: Patient continues to improve, possibly pain is under control, incision is without any problems, no bowel movements yet, has some factors, no nausea. Patient requires tramadol and oxycodone for postoperative pain post discharge, has pain management post discharge Review of Systems Constitutional: Denies chronic pain, Denies fever, Denies lethargy, Denies weakness, Denies weight gain, Denies weight loss Eyes: denies blurred vision, denies bulging eye, denies decreased vision Ears: deny: decreased hearing Ears, nose, mouth and throat: Denies dysphagia, Denies neck lump, Denies swelling in throat, Denies sore throat Cardiovascular: Denies chest pain, Denies decreased exercise tolerance, Denies dyspnea on exertion, Denies lightheadedness, Denies rapid heart beat, Denies shortness of breath, Denies syncope Respiratory: Denies congestion, Denies cough with sputum, Denies home oxygen, Denies sleep apnea, Denies snoring, Denies wheezing Gastrointestinal: Reports nausea, Denies abdominal pain, Denies bloating, Denies BRBPR, Denies change in bowel habits, Denies coffee ground emesis, Denies early satiety, Denies heartburn, Denies hematemesis, denies vomiting Genitourinary: Denies dysuria, Denies hematuria Musculoskeletal: right: shoulder pain-controlled, absent: ankle pain, ankle stiffness, ankle swelling, elbow pain, elbow stiffness, elbow swelling, foot pain, foot stiffness, foot swelling, hand pain, hand stiffness, hand swelling, hip pain, hip stiffness, hip swelling, knee pain, knee stiffness, knee swelling, shoulder stiffness, shoulder swelling, wrist pain, wrist stiffness, wrist swelling Integumentary: Denies pruritus, Denies rash Neurological: Denies numbness, Denies weakness Psychiatric: Denies anxiety, Denies depression Endocrine: Denies fatigue, Denies weight change Objective - Vital Signs Vital signs: Vital Signs Temp 98.1 F 05/01/19 07:00 Pulse 81 05/01/19 07:00 Resp 16 05/01/19 07:00 BP 139/76 05/01/19 07:00 Pulse Ox 94 L 05/01/19 07:00 Intake & Output 04/30/19 05/01/19 05/01/19 18:59 06:59 18:59 Intake Total 1100 300 Balance 1100 300 Intake: Intake, IV Titration 800 Amount Sodium Chloride 0.9% 1, 800 000 ml @ 100 mls/hr IV . Q10H [facility] Rx#:[id number] Oral 300 300 Other: # Voids 2 1 - Constitutional General appearance: Present: cooperative, no acute distress - EENT Eyes: Present: anicteric sclerae, PERRLA, dentition normal, normal appearance ENT: Present: NA/AT, normal oropharynx - Neck Neck: Present: normal ROM - Respiratory Respiratory: bilateral: CTA, negative: diminished, dullness, rales - Cardiovascular Rhythm: regular Heart sounds: normal: S1, S2 Abnormal Heart Sounds: Absent: systolic murmur, diastolic murmur, rub, S3 Gallop, S4 Gallop, click, other - Gastrointestinal General gastrointestinal: Present: normal bowel sounds, soft - Integumentary Integumentary: Present: decreased turgor, normal - Neurologic Neurologic: Present: CNII-XII intact - Musculoskeletal Musculoskeletal: Present: gait normal, strength equal bilaterally - Psychiatric Psychiatric: Present: A&O x's 3, appropriate affect - Labs CBC & Chem 7: 04/29/19 06:33 Assessment and Plan Plan: 1. Post operative day #3 status post right shoulder replacement. Continue the use of incentive spirometer to reduce the incidence of atelectasis and healthcare associated pneumonia, continue current pain management as outlined by orthopedic surgery, increase activity post discharge, consistent tinea incentive spirometry at home, pain control will be tramadol and oxycodone, has pain management outpatient pain meds from orthopedics today 2. Mild intermittent asthma. Stable at this time. 3. Osteoporosis. Hold off Celebrex for now. 4. Dry eyes. Continue current eyedrops. 5. Restless leg syndrome. Continue patient on clonazepam 0.25 mg orally once at bedtime. 6. Postoperative nausea, expected from surgery. Continue Zofran. Zofran and Dilaudid seemed to be causing more trouble with nausea. Pain medication changed to oxycodone and Phenergan for nausea Discharge plan: Return home today with
== END 2019-05-01 14:04 | disposition home or self-care (01) | DRG 483 ==
LOC: 2ORMAIN 10:53 → 4SSUR 15:12
PROVIDERS: ADMIT Orthopaedic Surgery Sports Medicine; ATTEND Orthopaedic Surgery Sports Medicine
PROC: 0RRJ0JZ Replacement of Right Shoulder Joint with Synthetic Substitute, Open Approach (ICD-10-PCS; principal; 2019-04-28 12:30)
PROC: 0LN10ZZ Release Right Shoulder Tendon, Open Approach (ICD-10-PCS; principal; 2019-04-28 12:30)
PROC: 3E0T3BZ Introduction of Anesthetic Agent into Peripheral Nerves and Plexi, Percutaneous Approach (ICD-10-PCS; principal; 2019-04-28 12:30)
DX: M19.011 Primary osteoarthritis, right shoulder (principal); J45.20 Mild intermittent asthma, uncomplicated; M81.0 Age-related osteoporosis without current pathological fracture; G25.81 Restless legs syndrome; F17.200 Nicotine dependence, unspecified, uncomplicated; W19.XXXA Unspecified fall, initial encounter; F17.210 Nicotine dependence, cigarettes, uncomplicated; Z98.1 Arthrodesis status; Z79.1 Long term (current) use of non-steroidal anti-inflammatories (NSAID); Z79.899 Other long term (current) drug therapy; Z80.51 Family history of malignant neoplasm of kidney; Z81.8 Family history of other mental and behavioral disorders
CPT/HCPCS: 64415; 85025; 88300

== ENCOUNTER → 2021-03-01 | Outpatient (CLI) | payer MEDICARE ==
--- NOTE | 2021-03-01 13:26 | CT ---
EXAMINATION TYPE: CT ankle RT wo con DATE OF EXAM: 03/01/2021 COMPARISON: No radiographic correlation is available HISTORY: 70-year-old female M19.071, Osteoarthritis. Prophecy protocol. TECHNIQUE: Contiguous axial scanning of the right foot without IV contrast. Coronal and sagittal bryan nstructions performed. Scanning was also performed through the right knee. 3-D reconstructions genera ciaran via dedicated independent workstation. CT DLP: 608 mGycm Automated exposure control for dose reduction was used. FINDINGS: There is moderate to severe eccentric joint space narrowing along the medial aspect of the tibiotalar joint with subchondral sclerosis and cystic change. Tiny densities below the medial malleolus suggests sequela of old deltoid ligament injury. Some addit ional marginal spurring is present at the talofibular joint. Subtalar joint appears aligned. Moderate degenerative change first MTP joint and also at the first metatarsal sesamoid joint. Moderate-sized tibiotalar and posterior subtalar joint effusions. Moderate peroneal tenosynovitis at and below the ankle joint. Images of the knee show intact extensor mechanism without joint effusion or acute osseous abnormality . Some faint lateral meniscal chondrocalcinosis is noted. IMPRESSION: 1. TIBIOTALAR JOINT OA WITH MODERATE TO SEVERE ECCENTRIC JOINT SPACE NARROWING ALONG THE MEDIAL ASPEC T OF THE JOINT. 2. ADDITIONAL MODERATE FIRST MTP JOINT OA. 3. SCANNING PERFORMED FOR SURGICAL PLANNING PURPOSES.
== END | disposition home or self-care (01) ==
LOC: RADCTMAIN 07:00
PROVIDERS: ATTEND Orthopaedic Surgery
DX: M19.071 Primary osteoarthritis, right ankle and foot (principal)

== ENCOUNTER 2023-02-15 10:26 | Emergency (ER) | payer MEDICARE ==
[2023-02-15] MEDS ORDERED: LIDOCAINE 1% INJ 10MG/ML (30 ML VIAL-PF) SQ ONE (11:24)
[2023-02-15] MEDS ORDERED: DIPH,PERTUS(ACELL)TETVAC-LF 0.5 ML VIAL IM ONE (11:24)
--- NOTE | 2023-02-15 11:38 | ED ---
General Adult HPI - General Chief complaint: Fall Stated complaint: Fall-running Time Seen by Provider: 02/15/23 11:04 Source: patient, RN notes reviewed Mode of arrival: ambulatory Limitations: no limitations - History of Present Illness Initial comments: 72-year-old female with no significant past medical history presents to the emergency department with a chief complaint of fall. Patient reports that she was finishing up a 5K when she decided to run across the finish line. She reports that she tripped over her following with both arms stretched out. She reports hitting her head. She denies any loss of consciousness or anticoagulant use. She denies any dizziness, lightheadedness, vision changes, vision loss, headache. She has not taken anything for his symptoms prior to arrival. - Related Data Home Medications Medication Instructions Recorded Confirmed [place] Study Vitamin 1 tab PO DAILY 04/19/19 04/28/19 Difluprednate [Durezol] 1 drop LEFT EYE BID 04/19/19 04/28/19 Ketorolac 0.5% Ophth Soln [Acular 1 drop LEFT EYE BID 04/19/19 04/28/19 0.5%] L.acidoph,Paracasei, B.lactis 1 cap PO DAILY 04/19/19 04/28/19 [Probiotic] Lubricant Eye Drops 1 drop BOTH EYES QID 04/19/19 04/28/19 clonazePAM 0.25 mg PO HS PRN 04/19/19 04/28/19 cycloSPORINE [Restasis] 1 applicator BOTH EYES BID 04/19/19 04/28/19 Celecoxib [CeleBREX] 200 mg PO DAILY 04/28/19 04/28/19 Previous Rx's Medication Instructions Recorded Docusate [Colace] 100 mg PO BID #60 capsule 04/30/19 Doxycycline Hyclate 100 mg PO BID 5 Days #10 tab 04/30/19 Promethazine [Phenergan] 12.5 mg PO Q4HR PRN #30 tablet 04/30/19 oxyCODONE ER [OxyCONTIN] 10 mg PO Q12HR 5 Days #10 tab 04/30/19 traMADol HCL [Ultram] 100 mg PO TID 4 Days #24 tab 05/01/19 Amoxic-Pot Clav 875-125Mg 1 tab PO Q12HR #20 tab 02/15/23 [Augmentin 875-125] HYDROcodone/APAP 10-325MG [[place] 1 tab PO Q6H PRN #7 tab 02/15/23 10-325] Allergies Allergy/AdvReac Type Severity Reaction Status Date / Time latex Allergy Unknown Verified 04/28/19 11:20 tree nut [Nut] Allergy Anaphylaxis Verified 04/28/19 11:20 Review of Systems ROS Statement: Those systems with pertinent positive or pertinent negative responses have been documented in the HPI. ROS Other: All systems not noted in ROS Statement are negative. Past Medical History Past Medical History: Asthma, Osteoarthritis (OA) Additional Past Medical History / Comment(s): ventral hernia, History of Any Multi-Drug Resistant Organisms: None Reported Past Surgical History: Back Surgery, Joint Replacement, Orthopedic Surgery Additional Past Surgical History / Comment(s): spinal fusion, shoulder surgery, wrist surgery, rt ankle and lt hip Past Anesthesia/Blood Transfusion Reactions: Family History of Problems w/ Anesthesia Additional Past Anesthesia/Blood Transfusion Reaction / Comment(s): mother PONV Past Psychological History: No Psychological Hx Reported Smoking Status: Never smoker Past Alcohol Use History: Daily Past Drug Use History: None Reported - Past Family History Mother Family Medical History: Cancer Father Family Medical History: Dementia Brother(s) Family Medical History: No Reported History Sister(s) Family Medical History: No Reported History General Exam - General Exam Comments Initial Comments: General: Alert, in no acute distress Head: atraumatic normocephalic. Eyes PERRL, EOMI intact, mucous membranes moist, nose with abrasion without active bleeding Respiratory: Lungs clear to auscultation bilaterally Cardiovascular: Regular rate and rhythm Abdominal: Soft without guarding or rebound Extremities: Normal inspection with full range of motion and normal capillary refill, left elbow with generalized tenderness. Limited range of motion secondary to pain. 2+ radial pulses. Distal NVI remains intact. Neuroogic: alert and oriented 3, CN II-XII intact, able to ambulate with steady gait Skin: warm dry and intact with normal color Limitations: no limitations Eye exam: Present: PERRL, EOMI, periorbital swelling, periorbital tenderness, other (No pain with extraocular eye movements). Absent: normal appearance Pupils: Present: normal accommodation ENT exam: Present: normal exam, normal oropharynx Course Vital Signs 02/15/23 02/15/23 10:42 13:46 Temperature 98.1 F 98.6 F Pulse Rate 104 H 84 Respiratory 20 18 Rate Blood Pressure 137/86 158/99 O2 Sat by Pulse 98 99 Oximetry - Reevaluation(s) Reevaluation #1: 02/15/23 11:39 Initial history and physical exam performed. Patient offered Tylenol. She declined at this time. Procedures - Laceration Laceration #1 Consent Obtained: verbal consent Indication: laceration Site: face (Right eyebrow) Size (cm): 1 Description: linear Depth: simple, single layer Anesthetic Used: lidocaine 1% Anesthesia Technique: local infiltration Amount (mls): 10 Pre-repair: wound explored, irrigated extensively Type of Sutures: vicryl Size of Sutures: 6-0 Number of Sutures: 1 Technique: simple, interrupted Complications: pain, bleeding, nerve injury Patient Tolerated Procedure: well, no complications - Orthopedic Splinting/Casting Injury #1 Side: left Upper Extremity Injury Location: elbow Upper Extremity Immobilizer: sling/shoulder immobilizer, posterior splint Additional Comments: Distal NVI remains intact status post splint placement Medical Decision Making - Medical Decision Making Was pt. sent in by a medical professional or institution (Dr. PA, TOUR BUS DRIVER/GUIDE, urgent care, hospital, or half-way...) When possible be specific @ -[No] Did you speak to anyone other than the patient for history (EMS, parent, family, police, friend...)? What history was obtained from this source @ - Did you review nursing and triage notes (agree or disagree)? Why? @ -[I reviewed and agree with nursing and triage notes] Were old charts reviewed (outside hosp., previous admission, EMS record, old EKG, old radiological studies, urgent care reports/EKG's, half-way records)? Report findings @ -[No old charts were reviewed] Differential Diagnosis (chest pain, altered mental status, abdominal pain women, abdominal pain men, vaginal bleeding, weakness, fever, dyspnea, syncope, headache, dizziness, GI bleed, back pain, seizure, CVA, palpatations, mental health, musculoskeletal)? @ -[not applicable] EKG interpreted by me (3pts min.). @ -[As above] X-rays interpreted by me (1pt min.). @ -X-ray of left elbow reveals no displacement radial neck fracture all other x-rays negative CT interpreted by me (1pt min.). @ -[None done] U/S interpreted by me (1pt. min.). @ -[None done] What testing was considered but not performed or refused? (CT, X-rays, U/S, labs)? Why? @ -[None] What meds were considered but not given or refused? Why? @ -[None] Did you discuss the management of the patient with other professionals (professionals i.e. , PA, TOUR BUS DRIVER/GUIDE, lab, RT, psych nurse, social sciences department chair, elevator runner, teacher, medical officer, child welfare caseworker)? Give summary @ -[No] Was smoking cessation discussed for >3mins.? @ -[No] Was critical care preformed (if so, how long)? @ -[No] Were there social determinants of health that impacted care today? How? (Homelessness, low income, unemployed, alcoholism, drug addiction, transportation, low edu. Level, literacy, decrease access to med. care, retirement, rehab)? @ -[No] Was there de-escalation of care discussed even if they declined (Discuss DNR or withdrawal of care, Hospice)? DNR status @ -[No] What co-morbidities impacted this encounter? (DM, HTN, Smoking, COPD, CAD, Cancer, CVA, ARF, Chemo, Hep., AIDS, mental health diagnosis, sleep apnea, morbid obesity)? @ -[None] Was patient admitted / discharged? Hospital course, mention meds given and route, prescriptions, significant lab abnormalities, going to OR and other pertinent info. @ -Discharged. This is a 72-year-old female who presents to the emergency department with fall. Patient had a thorough history and physical exam performed on the ED.. Physical exam reveals periorbital swelling to the right eye. Extraocular eye movements remain intact. Abrasion to tip of nose with bleeding controlled. Patient had imaging performed which revealed: Left elbow x-ray reveals mild effusion with nondisplaced radial neck fracture. All other x-rays negative. CT head negative for any evidence of intracranial process. CT facial bones reveals scleral hemorrhage within the right maxillary sinus with large amount of subcutaneous emphysema along the inferior right eyelid checking to the floor of the right orbit psych mental block fracture There is submental mildly angulated minimally displaced right-sided comminuted nasal bone fracture with overlying soft tissue swelling I discussed the results in detail with the patient verbalized understanding and all questions were addressed. Patient was initially offered something for pain to which she declined. Patient asking for something for pain. Patient was given morphine with symptomatic relief in the ED. She'll be discharged home in stable condition. Return precautions were discussed. She was given recommend close follow-up instructions with ENT, ophthalmology and orthopedics. Patient discharged in stable condition. She was given a prescription for [place] and Augmentin.. Case discussed with Dr. Franklin [facility] who agrees with plan of care. Undiagnosed new problem with uncertain prognosis? @ -[No] Drug Therapy requiring intensive monitoring for toxicity (Heparin, Nitro, Insulin, Cardizem)? @ -[No] Were any procedures done? @ -[No] Diagnosis/symptom? @ - Fall - Right blow out fracture - Nasal bone fracture - L radial neck fracture Acute, or Chronic, or Acute on Chronic? @ -Acute Uncomplicated (without systemic symptoms) or Complicated (systemic symptoms)? @ -uncomplicated Side effects of treatment? @ -[No] Exacerbation, Progression, or Severe Exacerbation? @ -[No] Poses a threat to life or bodily function? How? (Chest pain, [place], [place], pneumonia, PE, COPD, DKA, ARF, appy, cholecystitis, CVA, Diverticulitis, Homicidal, Suicidal, threat to staff... and all critical care pts) @ -Low likelihood Disposition Clinical Impression: Fall, Radial neck fracture, Nasal bone fracture, Blow-out fracture Disposition: HOME SELF-CARE Instructions (If sedation given, give patient instructions): Nasal Fracture (ED), Elbow Fracture (ED), Fall Prevention (ED) Prescriptions: Amoxic-Pot Clav 875-125Mg [Augmentin 875-125] 1 tab PO Q12HR #20 tab HYDROcodone/APAP 10-325MG [[place] 10-325] 1 tab PO Q6H PRN #7 tab PRN Reason: pain Is patient prescribed a controlled substance at d/c from ED?: Yes If prescribed controlled substance>3 days was MAPS reviewed?: Prescribed <3 Days Referrals: Radhames Hwang MD [Primary Care Provider] - 1-2 days Lorena Robbins MD [STAFF PHYSICIAN] - 1-2 days Parveen Garner DO [Doctor of Osteopathic Medicine] - 1-2 days Johnathan Martínez MD [STAFF PHYSICIAN] - 1-2 days Time of Disposition: 13:07
--- NOTE | 2023-02-15 12:25 | XR ---
EXAMINATION TYPE: XR humerus 2 views bilateral, XR wrist complete 4 views LT, XR elbow complete 3 vie ws bilateral DATE OF EXAM: 02/15/2023 COMPARISON: NONE HISTORY: 72-year-old female fall and pain FINDINGS: Bilateral humerus: On the right, there is total shoulder arthro elbows: plasty demonstrated. The humeral stem component of the prosthesis appears well seated. No humeral shaft fracture seen. On the left, there is at least moderate degenerative change at the glenohumeral joint. Again, the humeral shaft is intact. Elbows: Small elbow joint effusions, left greater than right. On the left, there is cortical buckling and a s ubtle transverse band of sclerosis across the neck of the radius particularly on the oblique view. No acute fracture identified on the right. Left wrist: Prior trapezial resection for treatment of OA. There is some dorsal tilt of the lunate which may be p rojectional. No subluxation or dislocation. Some ROBERT calcifications noted. No acute fracture seen. IMPRESSION: 1. Humeri: Moderate left glenohumeral joint OA. Previous right shoulder arthroplasty. No humeral shaf t fracture seen. 2. Left elbow: Mildly impacted, nondisplaced fracture of the radial neck. Associated joint effusion. 3. Right elbow: There is a small joint effusion on this side as well but no acute osseous abnormality seen. Follow-up in 10-14 days can be considered. 4. Left wrist: Previous carpal bone resection for treatment of OA at the base of the thumb. There is some dorsal tilt of the lunate which may be positional or could reflect underlying chronic scapholuna te ligament injury. Correlate for any wrist instability. No acute osseous abnormality seen.
--- NOTE | 2023-02-15 12:33 | CT ---
EXAMINATION TYPE: CT brain cspine wo con DATE OF EXAM: 02/15/2023 COMPARISON: Cervical spine CT 07/18/2018 HISTORY: 72-year-old female Fell, facial pain-right side nose and orbital area CT DLP: 1196.1 mGycm Automated exposure control for dose reduction was used. Technique: Examination of the head was done in axial plane without intravenous contrast. Coronal and sagittal reconstructions performed. CT of the cervical spine was obtained in axial plane without intravenous injection of contrast mater ial. Coronal and sagittal reformatted images were obtained from the axial views for evaluation of f ractures, spinal alignment and canal. FINDINGS: Head: There is no evidence of acute intracranial hemorrhage, acute ischemic changes, mass, mass-effect, or extra-axial fluid collection. There is no effacement of cerebral sulci or basal subarachnoid cister ns. There is no hydrocephalus. There is no midline shift. Marx-white matter distinction is preserv ed. Mastoid air cells are well pneumatized. No calvarial fracture seen. Facial bones reported separately. Cervical spine: No craniocervical junction abnormality, predental space widening, or prevertebral soft tissue swellin g. Degenerative change of the C1 dens articulation. Moderate multilevel spondylotic changes present throughout the cervical spine. Reversal of the normal cervical lordosis. Degenerative grade 1, nearly grade 2 anterolisthesis C3-C4 and C4-C5. New at the C3-C4 level. Trace grade 1 retrolisthesis C4-C5. Disc osteophyte complex may contribute to a mild or moderate narrowing of the spinal canal at C5-C6. No acute fracture is seen. Variable moderate bilateral neuroforaminal stenosis throughout, more moderate to severe at some level s. Sagittal and coronal reformatted images confirm above findings. COMBINED IMPRESSION: 1. No acute intracranial abnormality seen. Note that the facial bones reported separately. 2. Moderate multilevel spondylotic change. Degenerative grade 1, nearly grade 2 anterolisthesis of beth th C3-C4 and C4-C5. Trace grade 1 retrolisthesis C5-C6. The degenerative changes at C3-C4 have progre ssed from 2018. No acute fracture seen of the cervical spine. 3. Facial bones reported separately.
--- NOTE | 2023-02-15 12:38 | CT ---
EXAMINATION TYPE: CT facial bones wo con DATE OF EXAM: 02/15/2023 COMPARISON: None HISTORY: 72-year-old female Fell, facial pain-right side nose and orbital area TECHNIQUE: Contiguous axial scanning of the facial bones without IV contrast. Coronal and sagittal re constructions performed. CT DLP: Included in brain, c-spine mGycm Automated exposure control for dose reduction was used. FINDINGS: The mandible and TMJs are intact. Pterygoid plates and zygomatic arches are intact. There is layering hemorrhage within the right maxillary sinus with a large amount of subcutaneous emp hysema along the inferior right eyelid tracking into the floor of the right orbit where a segmental b lowout fracture shows fragments displaced 7 mm downward and an osseous gap measuring 1.3 cm wide and up to 2.1 cm AP. Addition, there is a segmental, mildly angulated and minimally depressed right sided comminuted nasal bone fracture with overlying soft tissue swelling. No additional acute facial bone fracture seen. Right supraorbital laceration. Globes appear symmetric. IMPRESSION: 1. LARGE BLOWOUT FRACTURE OF THE RIGHT ORBITAL FLOOR. THIS IS A COMMINUTED FRACTURE WITH FRAGMENTS AN GULATED DOWNWARD INTO THE MAXILLARY SINUS BY 7 MM AND AN OSSEOUS GAP MEASURING 1.3 CM WIDE AND 2.1 CM AP. SOME LAYERING HEMORRHAGE WITHIN THE RIGHT MAXILLARY SINUS AND SOME EMPHYSEMA WHICH EXTENDS ALONG THE RIGHT ORBITAL FLOOR AND INFERIOR RIGHT LID. 2. SEGMENTAL, MILDLY ANGULATED AND MINIMALLY DEPRESSED, COMMINUTED RIGHT NASAL BONE FRACTURE.
[2023-02-15] MEDS ORDERED: MORPHINE SULFATE 4 MG/ML SYRINGE IM STA (12:57)
[2023-02-15 13:50] VITALS: BP 158/99; PULSE 84; RESP 18; TEMP 98.6
== END 2023-02-15 14:07 | disposition home or self-care (01) ==
LOC: EC 10:26
DX: S02.31XA Fracture of orbital floor, right side, initial encounter for closed fracture (principal); S02.2XXA Fracture of nasal bones, initial encounter for closed fracture; S52.135A Nondisplaced fracture of neck of left radius, initial encounter for closed fracture; M43.12 Spondylolisthesis, cervical region; M47.812 Spondylosis without myelopathy or radiculopathy, cervical region; J45.909 Unspecified asthma, uncomplicated; M19.90 Unspecified osteoarthritis, unspecified site; Z79.1 Long term (current) use of non-steroidal anti-inflammatories (NSAID); Z91.040 Latex allergy status; Z91.010 Allergy to peanuts; Z23 Encounter for immunization; Y93.02 Activity, running; W01.0XXA Fall on same level from slipping, tripping and stumbling without subsequent striking against object, initial encounter
CPT/HCPCS: 73060; 73080; 73110; 72125; 70486; 70450; 90715; 99284; 90471; 96372; 12011; 29125; J2270; J2001

== ENCOUNTER → 2023-03-27 | Outpatient (CLI) | payer MEDICARE ==
--- NOTE | 2023-03-27 11:24 | P.PN ---
Subjective DATE: 03/27/2023 FOLLOW UP VISIT. Patient with obstructive sleep apnea hypopnea syndrome return to sleep center for follow-up visit. Information from previous visit have been reviewed. Patient is using PAP equipment every night for the whole night, getting PAP supplies in time. The patient does not have significant problems with the mask, PAP unit and humidification. [place] sleepiness scale is 4, which is normal. I checked information from PAP unit. PAP unit pressure 6-12, average 8.5 cm H2O. Usage is 70 % for more then 4 hours, average 4 hours per night. Leak is 12 l/m, which is in acceptable range. Apnea Hypopnea Index is 1.9, which is normal. MEDICATIONS:1. Amlodipine/benazepril 5/10 mg once a day 2. Triamterene/kevxlsxtajodxknlpil575/2 milligrams once a day 3. Rosuvastatin 20 mg once a day 4 loratidine 10 mg once a day During physical exam: GENERAL: A pleasant patient without any distress. VITAL SIGNS: BP 114/76, HR 61, RR 12 , weight 257, temperature 97.4, oxygen saturation at room air 96 % . HEENT: PERRLA, EOMI.low position of soft palate, Mallapati 2-3 . NECK: Supple. No JVD. LUNGS: Clear to percussion and to auscultation. Good air exchange. No wheezing or rhonchi. HEART: S1, S2 regular. ABDOMEN: Soft and nontender. Obese EXTREMITIES: No clubbing or cyanosis. PAPERBACK MACHINE OPERATOR: Awake, alert, and oriented x3. No focal deficit. Impressions: 1. Obstructive sleep apnea-hypopnea syndrome. Patient demonstrated borderline compliance with treatment, benefiting from treatment. 2. Obesity, BMI 46.2, patient increased his weight on 8 pounds comparing to the previous visit. 3. Hypertension. 4. Hyperlipidemia. 5. History of asthma. 6. Status post D&C. Plan: 1. Continue using PAP equipment every night for the whole night. 2. To change air filter at least 1-2 times per month. 3. PAP unit should stay lower then position of the head. 4. Advised patient to remove all remaining water from humidifier canister daily and make it dry after each usage. Refill canister with fresh distilled water before each usage. 5. Sleep hygiene with regular time in bed for at least 8 hours. 6. Precautions related to driving. No driving if feel any sleepiness. 7. I will maintain prescription for PAP supplies including mask, tube, filters. 8. Watching and losing weight. 9. Follow up visit in 6 months or earlier if patient has any problems. Thank you very much for allowing me to participate in the management of your patient. Clif Ibarra MD, PhD, FAASM. Diplomat of [place] [employer], Sleep Medicine Board by [place] [employer] [facility] [place]
--- NOTE | 2023-03-27 11:40 | P.SLEEP ---
History of Present Illness DATE: 03/27/2023 CONSULTATION/NEW PATIENT EVALUATION HISTORY OF PRESENT ILLNESS/SLEEP-WAKE EVALUATION: 72 year old lady had been evaluated in the sleep center for possible obstructive sleep apnea hypopnea syndrome. SLEEP SCHEDULE: Usually sleep schedule from 10 PM to 6 AM 7 days a week. FALLING ASLEEP: Sometimes patient has difficulties with falling asleep, although no TV in bedroom. DURING SLEEP: Patient sleeps in different positions. According to her she has snoring. Patient wakes up from sleep multiple times with up to 3 episodes of nocturia. Positive history of restless leg symptoms and jumping legs during the sleep. No history of hypnogogical hallucinations, sleep paralysis, or cataplexy. Positive history of panic attacks, dry mouth, grinding teeth. DURING THE DAY/WAKE STATE: In the morning patient wake up tired, has episodes of claustrophobia. [place] sleepiness scale is 2-3. Patient may have occasional around 3 PM for 30 minutes. PAST MEDICAL HISTORY: Asthma, sinuses problems, namely in the past, squamous cell cancer of the nose. 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 MEDICATIONS: Celecoxib 200 mg once a day, clonazepam 1 when necessary basis, albuterol if necessary. SOCIAL HISTORY: Positive for occasional smoking for about 20 years quit 20 years ago, alcohol consumption occasional. FAMILY HISTORY: Hyperlipidemia, arthritis, cancer, sleep apnea, anemia, restless leg syndrome. REVIEW OF SYSTEMS: Snoring, multiple awakenings from sleep. No fevers. No double vision. No recent chest pain. No shortness of breath. No abdominal pain. No bleeding episodes. No blood in urine. No seizure episodes. PHYSICAL EXAMINATION: GENERAL: A pleasant patient without any distress. VITAL SIGNS: BP 136/74 , HR 78 , RR 14 , weight 143.0 pounds, height 5 foot 6-3/4 inches, body mass index 22.5 . HEENT: PERRLA, EOMI. Evaluation of oropharynx showed tongue protrudes midline, low position of soft palate Mallampati 4, retrognathia 3 mm. NECK: Supple. No JVD. Thyroid is not palpable. 14.5 inches in circumference. LUNGS: Clear to percussion and to auscultation. Good air exchange. No wheezing or rhonchi. HEART: S1, S2 regular. No murmurs, gallops or rubs. ABDOMEN: Soft and nontender. Bowel sounds are present. No organomegaly appreciated. EXTREMITIES: No clubbing or cyanosis. MARBLE CUTTER: Awake, alert, and oriented x3. Cranial nerves 2 to 7 intact. There is no fasciculation or atrophy noted. No focal deficits observed. ASSESSMENT: 1. Snoring, multiple awakenings from sleep, extremely low position of soft palate Mallampati 4, retrognathia. Obstructive sleep apnea hypopnea syndrome. 2. History of asthma. 3. History of sinuses problems. 4. Restless leg symptoms. 5 significant amount of movements during the sleep, possibly periodic limb movements. 6 . History of anemia in the past. 7. 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 PLAN: 1. Polysomnography for evaluation of patient's breathing during sleep and to check for possible periodic limb movements. 2. CPAP/BiPAP titration if sleep study confirms obstructive sleep apnea- hypopnea syndrome. 3. Preferable position during sleep on the side. 4. No driving if patient feels any sleepiness. Patient is aware of civil and criminal liability for unsafe driving. 5. Sleep hygiene with regular sleep time for at least 7.5-8 hours. Thank you very much for referring this patient for consultation. Sincerely, Clif Ibarra MD, PhD, FAASM. Diplomat of [place] [employer], Sleep Medicine Board by [place] [employer] [employer] [facility] [place] Past Medical History Past Medical History: Asthma, Osteoarthritis (OA) Additional Past Medical History / Comment(s): ventral hernia, History of Any Multi-Drug Resistant Organisms: None Reported Past Surgical History: Back Surgery, Joint Replacement, Orthopedic Surgery Additional Past Surgical History / Comment(s): spinal fusion, shoulder surgery, wrist surgery, rt ankle and lt hip Past Anesthesia/Blood Transfusion Reactions: Family History of Problems w/ Anesthesia Additional Past Anesthesia/Blood Transfusion Reaction / Comment(s): mother PONV Past Psychological History: No Psychological Hx Reported Smoking Status: Never smoker Past Alcohol Use History: Daily Past Drug Use History: None Reported - Past Family History Mother Family Medical History: Cancer Father Family Medical History: Dementia Brother(s) Family Medical History: No Reported History Sister(s) Family Medical History: No Reported History Medications and Allergies Home Medications Medication Instructions Recorded Confirmed Type [place] Study Vitamin 1 tab PO DAILY 04/19/19 04/28/19 History Difluprednate [Durezol] 1 drop LEFT EYE BID 04/19/19 04/28/19 History Ketorolac 0.5% Ophth Soln [Acular 1 drop LEFT EYE BID 04/19/19 04/28/19 History 0.5%] L.acidoph,Paracasei, B.lactis 1 cap PO DAILY 04/19/19 04/28/19 History [Probiotic] Lubricant Eye Drops 1 drop BOTH EYES QID 04/19/19 04/28/19 History clonazePAM 0.25 mg PO HS PRN 04/19/19 04/28/19 History cycloSPORINE [Restasis] 1 applicator BOTH EYES BID 04/19/19 04/28/19 History Celecoxib [CeleBREX] 200 mg PO DAILY 04/28/19 04/28/19 History Docusate [Colace] 100 mg PO BID #60 capsule 04/30/19 Rx Doxycycline Hyclate 100 mg PO BID 5 Days #10 tab 04/30/19 Rx Promethazine [Phenergan] 12.5 mg PO Q4HR PRN #30 tablet 04/30/19 Rx oxyCODONE ER [OxyCONTIN] 10 mg PO Q12HR 5 Days #10 tab 04/30/19 Rx traMADol HCL [Ultram] 100 mg PO TID 4 Days #24 tab 05/01/19 Rx Amoxic-Pot Clav 875-125Mg 1 tab PO Q12HR #20 tab 02/15/23 Rx [Augmentin 875-125] HYDROcodone/APAP 10-325MG [[place] 1 tab PO Q6H PRN #7 tab 02/15/23 Rx 10-325] Allergies Allergy/AdvReac Type Severity Reaction Status Date / Time latex Allergy Unknown Verified 04/28/19 11:20 tree nut [Nut] Allergy Anaphylaxis Verified 04/28/19 11:20 Sleep Note - Sleep Note Sleep Note: Temperature: Pulse Rate: Respiratory Rate: Blood Pressure: SpO2: Height: Weight: BMI: Neck Circumference:
== END ==
LOC: 3 N SLEEP 10:38
PROVIDERS: ATTEND Internal Medicine
DX: G47.33 Obstructive sleep apnea (adult) (pediatric) (principal); J45.909 Unspecified asthma, uncomplicated; G25.81 Restless legs syndrome; G47.69 Other sleep related movement disorders; F17.200 Nicotine dependence, unspecified, uncomplicated; M19.90 Unspecified osteoarthritis, unspecified site; G47.61 Periodic limb movement disorder; D64.9 Anemia, unspecified; Z99.89 Dependence on other enabling machines and devices; Z91.040 Latex allergy status; Z91.018 Allergy to other foods
CPT/HCPCS: 99211